=== PATIENT | female | born 1950 | race Caucasian/White ===

== ENCOUNTER 2018-08-19 13:53 | Outpatient (CLI) | payer MEDICARE, BC, SELFPAY ==
[2018-08-19 14:23] LABS: Abs Immature Grans 0.01 k/cumm (0.0-0.09); Absolute Basophil Count 0.02 k/cumm (0.0-0.2); Absolute Eosinophil Count 0.33 k/cumm (0.0-0.7); Absolute Lymphocyte Count 1.47 k/cumm (1.2-3.4); Absolute Monocyte Count 0.46 k/cumm (0.11-0.7); Basophils % 0.3; Eosinophils % 5.5; HCT 41.2 % (36.0-46.0); HGB 13.3 g/dL (12.0-15.5); Immature Grans % 0.2; Lymphocytes % 24.5; Mean Corp. HGB Concentration 32.3 g/dL (32.0-36.0); Mean Corpuscular Hemoglobin 27.9 pg (27.0-33.0); Mean Corpuscular Volume 86.4 fL (80-95); Mean Platelet Volume 9.9 fL (8.0-11.0); Monocytes % 7.7; Neutrophils % 61.8; Platelet Count 343 x1000/uL (130-400); RBC 4.77 m/cumm (4.00-5.20); RBC Distribution Width 14.8 % (11.7-14.6); White Blood Cell Count 5.99 k/cumm (4.4-10.8)
[2018-08-19 14:43] LABS: ALT 23 U/L (12-78); AST 16 U/L (15-37); Albumin 3.8 g/dL (3.4-5.0); Alkaline Phosphatase 104 U/L (46-116); Anion Gap 9.9 mmol/L (3-11); BUN 32 mg/dL (7-18); Bilirubin, Total 0.3 mg/dL (0.2-1.0); CO2 25.1 mmol/L (21.0-32.0); CREATININE 1.38 mg/dL (0.55-1.02); Calcium 9.1 mg/dL (8.5-10.1); Chloride 103 mmol/L (98-107); Estimated GFR 38.02 (mL/min/1.73m2); Glucose 97 mg/dL (70-100); Sodium 138 mmol/L (136-145); Total Protein 8.1 g/dL (6.4-8.2)
[2018-08-22 09:37] LABS: CEA 2.1 ng/ml
== END 2018-08-19 14:13 ==
PROVIDERS: PCP Internal Medicine; Visit Provider Internal Medicine Hematology & Oncology
DX: C18.9 Malignant neoplasm of colon, unspecified (principal)
CPT/HCPCS: 36415; 80053; 82378; 85025